=== PATIENT | male | born 1985 | race Caucasian/White ===

== ENCOUNTER 2018-06-04 22:41 | Emergency (ER) | payer OTHER ==
[~2018-06-04] VITALS: Ht 167.6 cm; Wt 97.1 kg
[2018-06-04 23:15] LABS: BASOPHILS # (AUTO) 0.02 x10^3/uL (0-0.1); BASOPHILS % (AUTO) 0 % (0-1); EOSINOPHILS # (AUTO) 0.06 x10^3/uL (0-0.4); EOSINOPHILS % (AUTO) 1 % (1-7); LYMPHOCYTES # (AUTO) 2.51 x10^3/uL (1-3.4); LYMPHOCYTES % (AUTO) 32 % (22-44); MD NO; MEAN CORPUSCULAR HEMOGLOBIN 29.1 pg (27.5-34.5); MEAN CORPUSCULAR HGB CONC 34.1 g/dL (33.2-36.2); MEAN CORPUSCULAR VOLUME 85.3 fL (81-97); MEAN PLATELET VOLUME 11.1 fL (7.4-10.4); MONOCYTES # (AUTO) 0.51 x10^3/uL (0.2-0.8); MONOCYTES % (AUTO) 6 % (2-9); NEUTROPHILS # (AUTO) 4.84 x10^3/uL (1.8-6.8); NEUTROPHILS % (AUTO) 61 % (42-75); PLATELET COUNT 181 x10^3/uL (130-400); RED BLOOD COUNT 5.27 x10^6/uL (4.38-5.82); RED CELL DISTRIBUTION WIDTH 13.4 % (9.4-14.8)
[2018-06-04 23:24] LABS: ALANINE AMINOTRANSFERASE 41 U/L (12-78); ALBUMIN 4.1 g/dL (3.4-5.0); ANION GAP 12 mmol/L (5-15); CALCIUM 9.1 mg/dL (8.5-10.1); CHLORIDE 106 mmol/L (98-107); CREATININE 0.89 mg/dL (0.7-1.3)
[2018-06-04 23:26] LABS: ALKALINE PHOSPHATASE 91 U/L (45-117); BILIRUBIN,TOTAL 0.2 mg/dL (0.2-1.0); TOTAL PROTEIN 7.8 g/dL (6.4-8.2)
[2018-06-05 01:19] VITALS: BP 125/80
== END 2018-06-05 01:22 | disposition home or self-care (01) ==
LOC: ED 06-05 01:18
DX: R00.2 Palpitations (principal)
CPT/HCPCS: 36415; 71046; 80053; 85025; 93005; 99285

== ENCOUNTER 2020-10-05 14:15 | Emergency (ER) | payer OTHER ==
[~2020-10-05] VITALS: Ht 170.2 cm; Wt 104.1 kg
[2020-10-05 14:18] VITALS: BP 158/98
[2020-10-05] MEDS ORDERED: L.E.T SOLUTION TP ONE ×2 (14:38→15:00)
--- NOTE | 2020-10-05 14:55 | NUR ---
PT RESTING COMFORTABLY. EDP AT BEDSIDE TO GLUE R EYE LAC. PT TOLERATED WELL.
[2020-10-05] MEDS ORDERED: FLUORESCEIN/BENOXINATE 5 ML DROPS OP ONE (15:00)
[2020-10-05] MEDS ORDERED: ACETAMINOPHEN 500 MG TABLET ONE (15:07)
[2020-10-05] MEDS ORDERED: ACETAMINOPHEN 500 MG TABLET PO ONE (15:30)
== END 2020-10-05 15:21 | disposition home or self-care (01) ==
LOC: ED 15:18
DX: S01.111A Laceration without foreign body of right eyelid and periocular area, initial encounter (principal); W22.8XXA Striking against or struck by other objects, initial encounter; Y93.89 Activity, other specified; Y92.89 Other specified places as the place of occurrence of the external cause; Y99.0 Civilian activity done for income or pay
CPT/HCPCS: 12011; 99283

== ENCOUNTER 2021-02-03 20:17 | Emergency (ER) | payer SELFPAY ==
[~2021-02-03] VITALS: Ht 172.7 cm; Wt 101.9 kg
[2021-02-03 20:19] VITALS: BP 165/86
== END 2021-02-03 21:43 | disposition left against medical advice (07) ==
LOC: ED 20:30
DX: R07.89 Other chest pain (principal)
CPT/HCPCS: 93005; 99283